=== PATIENT | male | born 1975 | race Hispanic/Latino ===

== ENCOUNTER → 2017-05-06 | Day surgery (SDC) | payer BC ==
[~2017-05-06] MED LIST: ALBUTEROL; FAT BURNER PO; FENTANYL CITRATE/PF 100MCG/2 ML INJ ONE; MIDAZOLAM HCL 2 MG/2 ML VIAL ONE; MULTIVITAMIN PO; PROPOFOL IV EMULSION 10 MG/ML 50 ML VIAL ONE; Z.0.LISINOPRIL10 MG PO; Z.0.PANTOPRAZOLE SO4 PO
--- NOTE | 2017-05-06 16:46 | Operative Report ---
DATE OF PROCEDURE: May 06, 2017 REFERRING PHYSICIAN: Ryland Jackson MD PROCEDURE PERFORMED: Colonoscopy and polypectomy. INDICATIONS FOR COLONOSCOPY: Colorectal cancer screening. Personal history of colon polyps. Father with colon cancer. MEDICATION: Patient was done under MAC. Please see anesthesiologist's note. PROCEDURE: With the patient in the left lateral decubitus position, the flexible fiberoptic Olympus colonoscope was inserted into the rectum with ease and advanced all the way to the cecum. It was then withdrawn slowly. Mucosa overlying the cecum appeared to be within normal limits. One polyp was snared from the distal ascending colon. The transverse and descending appeared to be within normal limits. Two polyps were hot biopsied from the sigmoid. The rectum appeared to be within normal limits. The scope was then retroflexed into the distal rectum, and the area around the dentate line was examined carefully and revealed some moderate-size internal hemorrhoids. The scope was then straightened out. The rectosigmoid area as well as the distal rectal area were decompressed. The scope was subsequently withdrawn. Patient tolerated the procedure well. IMPRESSION 1. Ascending colon polyp, snared. 2. Sigmoid colon polyps times 2, hot biopsied. 3. Internal hemorrhoids, none actively bleeding. PLAN: Follow up histology. Initiate high-fiber, low-fat diet. Initiate high-fiber supplement. Patient will need a followup colonoscopy in 3 years. Job#: [id number] cc:RYLAND JACKSON MD
== END | disposition home or self-care (01) ==
LOC: OR 13:00
PROVIDERS: ATTEND Internal Medicine Gastroenterology
DX: Z12.11 Encounter for screening for malignant neoplasm of colon (principal); K63.5 Polyp of colon; K64.8 Other hemorrhoids; K62.5 Hemorrhage of anus and rectum; K62.89 Other specified diseases of anus and rectum; G47.33 Obstructive sleep apnea (adult) (pediatric); I10 Essential (primary) hypertension; N20.0 Calculus of kidney; Z01.810 Encounter for preprocedural cardiovascular examination; Z68.41 Body mass index [BMI] 40.0-44.9, adult; Z87.891 Personal history of nicotine dependence; Z80.0 Family history of malignant neoplasm of digestive organs
CPT/HCPCS: 45384; 45385; 93005; J2250

== ENCOUNTER → 2024-11-09 | Day surgery (SDC) | payer BC, OTHER ==
[~2024-11-09] MED LIST changes: -FENTANYL CITRATE/PF 100MCG/2 ML INJ ONE; +GLUCAGON FOR INJ 1 MG VIAL ONE; +GLYCOPYRROLATE INJ 0.2 MG/ML VIAL ONE; +LIDOCAINE HCL 2% LOCAL INJ 5 ML SDV VIAL INJ ONE; -MIDAZOLAM HCL 2 MG/2 ML VIAL ONE; +PROPOFOL IV EMULSION 10 MG/ML 20 ML VIAL ONE; -PROPOFOL IV EMULSION 10 MG/ML 50 ML VIAL ONE; +PROPOFOL IV EMULSION 50 ML IV ONE
[2024-11-09] MEDS: LACTATED RINGER'S 1,000 ML ONE (09:16)
[2024-11-09 12:37] VITALS: TEMP 97.8
[2024-11-09 13:00] VITALS: BP 136/100; PULSE 98; RESP 18; O2SAT 99
== END | disposition home or self-care (01) ==
LOC: OR 08:22
PROVIDERS: ATTEND Internal Medicine Gastroenterology
DX: K62.5 Hemorrhage of anus and rectum (principal); K63.5 Polyp of colon; Z80.0 Family history of malignant neoplasm of digestive organs; K59.09 Other constipation; K64.8 Other hemorrhoids; E66.01 Morbid (severe) obesity due to excess calories; Z71.3 Dietary counseling and surveillance; Z68.41 Body mass index [BMI] 40.0-44.9, adult; R00.1 Bradycardia, unspecified; Z01.810 Encounter for preprocedural cardiovascular examination
CPT/HCPCS: 45385; 93005; J1610; J2003; J2704 ×2; J7121; 45378